=== PATIENT | female | born 1995 | race Caucasian/White ===

== ENCOUNTER → 2023-08-10 15:24 | Outpatient (BNVA) | payer MEDICAID, SELFPAY | PROVIDERS: PCP Pediatrics; Visit Provider Physician Assistant ==

== ENCOUNTER 2024-04-06 10:00 | Outpatient (REF) | payer MEDICAID, SELFPAY | END 2024-04-06 10:01 | disposition home or self-care (01) | LOC: HO.HOSX 10:00 | PROVIDERS: Visit Provider Physician Assistant | DX: Z13.89 Encounter for screening for other disorder (principal) ==

== ENCOUNTER 2024-08-10 15:35 | Emergency (ER) | payer MEDICAID, SELFPAY ==
--- NOTE | ~2024-08-10 | XR_ITS ---
EXAMINATION: XR FOOT, RIGHT CLINICAL INFORMATION: Great toe pain, question fracture COMPARISON: None available. TECHNIQUE: AP, lateral, and oblique views of the right foot. FINDINGS: The bones and soft tissues are normal. No fracture. Alignment is anatomic. Joint spaces are maintained. XR/XR foot RT min 3V IMPRESSION: No acute fracture or subluxation of the right foot. Electronically signed by: Be Arrington MD 08/10/2024 06:56 PM EDT
[2024-08-10 15:47] VITALS: BP 110/67; PULSE 89; RESP 20; TEMP 36.7; O2SAT 97; BMI 33.3
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
[2024-08-10] MEDS: Acetaminophen 325 MG TABLET 975 MG PO (17:53)
== END 2024-08-10 19:21 | disposition home or self-care (01) ==
PROVIDERS: Emergency Provider Internal Medicine
DX: S91.201A Unspecified open wound of right great toe with damage to nail, initial encounter (principal); M79.671 Pain in right foot; Y29.XXXA Contact with blunt object, undetermined intent, initial encounter; Y93.89 Activity, other specified; Y92.89 Other specified places as the place of occurrence of the external cause; Y99.8 Other external cause status
CPT/HCPCS: 73630; 99283; 99284

== ENCOUNTER 2025-03-15 14:38 | Outpatient (REF) | payer MEDICAID, SELFPAY ==
--- OUTSIDE RECORDS SUMMARY | 2025-03-15 15:16 | XMS_ITS | Clinical Summary ---
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 Phone Unavailable Primary Care Provider Unavailabl e Allergies No known active allergies Encounters Date Type Department Care Team Description 01/12/2025 Population Health Risk Score [facility] (C[facility]) Department [address] [phone] Provider, Population Health Generic from Last 3 Months Social History Tobacco Use Types Packs/Day Years Used Date Smoking Tobacco: Never Assessed Comments Unknown Sex and Gender Information Value Date Recorded Sex Assigned at Female 08/31/2022 10:40 AM EDT Legal Sex Female 10:40 AM EDT Gender Identity Female 08/31/2022 10:40 AM EDT Sexual Orientation Straight 08/31/2022 10 :40 AM EDT Last Filed Vital Signs Vital Sign Reading Time Taken Comments Blood Pressure 137/93 11/23/2023 5:21 PM EST Pulse 82 11/23/2023 5:21 PM EST Temperature 36.8 ??C (98.3 ??F) 11/23/2023 5:21 PM ES T Respiratory Rate 20 11/23/2023 5:21 PM EST Oxygen Saturation 98% 11/23/2023 5:21 PM EST Inhaled Oxygen Concentration - - Weight 92.4 kg (203 lb 9.6 oz) 11/23/2023 5:21 P M EST Height 154.9 cm (5' 1 ) 06/22/2022 12:08 AM EDT Body Mass Index 38.47 06/22/2022 12:08 AM EDT Plan of Treatment Health Maintenance Due Date Last Done Comments Depression Screening 1995 HIV Screening 1995 SDOH Screening 1995 Alcohol/Substance Use Screening 2007 Tobacco Screening 2007 Family Planning (PISQ) 2010 Hepatitis C Screening 2013 Pneumococcal Vaccine: Pediatrics (0 to 5 Years) and At-Risk Patients (6 to 49) Years) (1 of 2 - PCV) 2014 Pap Smear 2016 DTaP/Tdap/Td Vaccines (2 - T d or Tdap) 06/13/2023 06/13/2013 COVID-19 Vaccine (1 - 2023-2 5 season) 2024 Zoster Vaccines (1 of 2) 2045 RSV Patients and Patients Aged 60 years or older (1 - 1-dose 75+ series) 2070 Hepatitis B Vaccines Completed 07/02/1996, 1995, 1995 HPV Vaccines Completed 08/09/2008, 03/30/2008, 01/27/2008 Influenza Vaccine Completed 08/16/2024, 09/08/2013, 08/02/2013 HIB Vaccines Aged Out No longer eligi ble based on patient's age to complete this topic Hepatitis A Vaccines Aged Out No long er eligible based on patient's age to complete this topic IPV Vaccines Aged Out No longer eligi ble based on patient's age to complete this topic Meningococcal B Vaccine Aged Out No l onger eligible based on patient's age to complete this topic Meningococcal Vaccine Aged Out No sharee spencer eligible based on patient's age to complete this topic RSV under 20 months Aged Out No longe r eligible based on patient's age to complete this topic Rotavirus Vaccines Aged Out No longer eligible based on patient's age to complete this topic Insurance [facility] C[facility]
--- OUTSIDE RECORDS SUMMARY | 2025-03-15 15:16 | XMS_ITS | Encounter Summary ---
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 Role Phone Unavailable Primary Care Provider Unavailabl e Reason for Visit * Reason Comments Med Refill Encounter Details Date Type Department Care Team (Late st Contact Info) Description 12/29/2023 Refill [facility] [address] [place] [address] Marcela Ruiz FNP [address] [place] [address] Social History Tobacco Use Types Packs/Day Years Used Date Smoking Tobacco: Never Assessed Comments Unknown Sex and Gender Information Value Date Recorded Sex Assigned at Female 08/31/2022 10:40 AM EDT Legal Sex Female 10:40 AM EDT Gender Identity Female 08/31/2022 10:40 AM EDT Sexual Orientation Straight 08/31/2022 10 :40 AM EDT documented as of this encounter Plan of Treatment Not on file documented as of this encounter Visit Diagnoses Not on filedocumented in this encounter
== END 2025-03-15 14:39 | disposition home or self-care (01) ==
LOC: CF 14:38
DX: Z13.89 Encounter for screening for other disorder (principal)

== ENCOUNTER 2025-04-12 08:33 | Outpatient (REF) | payer MEDICAID, SELFPAY ==
--- NOTE | ~2025-04-12 | XR_ITS ---
EXAMINATION: XR KNEE, LEFT CLINICAL INFORMATION: M25.569 - Pain in unspecified knee COMPARISON: March 15, 2025. TECHNIQUE: AP view standing position both knees. Lateral and sunrise projection of the left knee. FINDINGS: Sclerotic marginated tunneling extending from the lateral femoral condyle to the mid tibial plateau and medial proximal metaphysis of the tibia left knee and a metallic plate along the cortical margin of the superior lateral femoral condyle left knee. Joint space narrowing involving mostly the medial compartments of both knees with associated sclerosis of the articular surface medial tibial plateau. No acute cortical disruption or gross malalignment. No suprapatellar bursa joint effusion, left knee. No lytic or blastic lesions. XR/XR knee LT 3V IMPRESSION: Medial compartment osteoarthrosis, both knees. No acute fracture or dislocation. Status post ACL repair, left knee. Electronically signed by: Neel Waters MD 04/12/2025 11:38 AM EDT
== END 2025-04-12 08:34 | disposition home or self-care (01) ==
LOC: HO.HOSX 08:33
PROVIDERS: Visit Provider Physician Assistant
DX: M25.562 Pain in left knee (principal); Z98.890 Other specified postprocedural states
CPT/HCPCS: 73562; 99212

== ENCOUNTER 2025-04-12 10:34 | Outpatient (AMB) | payer MEDICAID, SELFPAY ==
--- NOTE | 2025-04-12 10:51 | MHC.OFFVIS ---
Vital Signs 04/12/25 10:53 Height 5 ft 1 in Weight 176 lb BMI 33.3 Intake Visit Reasons: OV-LT knee poss tibial interference 12/15/23 NE Intake Note: Estela is a 29 year old female who presents today for a follow up of her left knee and debridement tibial tunnel on 12/14/23 NE. Patient reports she is feeling better. She states that she an injury back in January when she was jump in trampoline park. Allergies No Known Allergies Allergy (Verified 04/12/25 10:53) HPI HPI OV-LT knee poss tibial interference 12/15/23 NE: Details: Ms. Galicia is a 29-year-old female who presents to the office today for left knee pain. Patient does have a history of a left knee ACL reconstruction with allograft and medial meniscal repair. She reports that in January of this year she was at a trampoline park and while jumping her left knee gave out. She has had increased pain ever since. She reports that the majority of her pain is located on the medial aspect of the knee and she does have episodes of giving way. [facility] Medical History (Updated 01/09/25 @ 14:32 by Rosa Galeas CNA) Pre-eclampsia delivery delivered Depressed affect Knee dislocation Surgical History (Updated 01/09/25 @ 14:32 by Rosa Galeas CNA) History of knee surgery Social History Household Members: None Housing: Apartment Do you presently have visiting nurse or other home services: No Patient Tobacco Use Status: Former Tobacco user Tobacco use type: Cigarette Cigarettes Per Day: 3 e-Cigarette/Vaping Use: Never Used Second Hand Smoke Exposure: Yes Substance Use Type: Marijuana service: No Current occupational status: employed 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 No ecchymosis, erythema or joint effusion. Range of motion 0-110. Significant tenderness to palpation of the medial joint line with positive Tatiana's. Some laxity with anterior drawer. NVI. Assessment & Plan Assessment & Plan (1) S/P left knee arthroscopy: Onset Date: ~12/14/23 Comment: Dr. Franklin Ang Code(s): Z98.890 - Other specified postprocedural states Category: Surgical Plan Ms. Galicia is a 29-year-old female who presents to the office today for left knee pain. Patient does have a history of a left knee ACL reconstruction with allograft and medial meniscal repair. She reports that in January of this year she was [place] [employer] [place] and while jumping her left knee gave out. She has had increased pain ever since. She reports that the majority of her pain is located on the medial aspect of the knee and she does have episodes of giving way. While the office today, we discussed the role of MRI imaging to further evaluate the integrity of the left knee and surrounding structures. As the patient is status post ACL reconstruction and medial meniscal repair we will further evaluate these for possibility of rerupture of ACL and meniscal tearing. An MRI was ordered while in the office today. She will follow up after the MRIs obtained, sooner if needed. X-rays of the left knee which were obtained while in the office today and were reviewed by me, Bambi Noonan PA-C, revealed evidence of prior left knee ACL reconstruction. No acute fracture or dislocation. Orders: Orders XR knee LT 3V Today M25.569 - Pain in unspecified knee MR knee LT wo con Today M23.92 - Unspecified internal derangement of left knee, Z98.890 - Other specified postprocedural states Coding Level of Care Code Est Pt Level 4 (61761) Diagnoses S/P left knee arthroscopy Z98.890
[2025-04-12 10:53] VITALS: BMI 33.3
--- OUTSIDE RECORDS SUMMARY | 2025-04-12 12:22 | XMS_ITS | Encounter Summary ---
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
== END 2025-04-12 11:26 | disposition home or self-care (01) ==
LOC: HO.HOS 10:35
PROVIDERS: Visit Provider Physician Assistant
DX: Z47.89 Encounter for other orthopedic aftercare (principal); M25.562 Pain in left knee
CPT/HCPCS: 99214

== ENCOUNTER → 2025-04-12 10:38 | Outpatient (BNV) | payer MEDICAID, SELFPAY | PROVIDERS: Visit Provider Radiology Diagnostic Radiology | DX: M17.0 Bilateral primary osteoarthritis of knee (principal) | CPT/HCPCS: 73562 ==

== ENCOUNTER 2025-05-05 21:46 | Emergency (ER) | payer MEDICAID, SELFPAY ==
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
[2025-05-05 21:53] VITALS: PULSE 118; RESP 20; TEMP 37.4; O2SAT 99; BMI 33.0
[2025-05-05 22:16] LABS: MANUAL DIFF FLAG NO
[2025-05-05 22:18] LABS: Hematocrit 40.3 % (37.0-47.0); Hemoglobin 13.6 g/dl (12.0-16.0); Imm Gran Abs Auto 0.04 X10*3/uL (0.00-0.03); Imm Gran Pct Auto 0.4 % (0.0-0.4); Lymphocytes Absolute Auto 1.9 X10*3/uL (1.2-4.9); Mean Corpuscular HGB Conc 33.7 g/dl (31.0-35.0); Mean Corpuscular Hemoglobin 28.1 pg (27.0-33.0); Mean Corpuscular Volume 83.3 fL (80.0-98.0); NRBC Abs Auto 0.000 X10*3/uL (0.0-0.012); NRBC Pct Auto 0.0 /100WBC (0.0-0.2); Platelet Count 213 X10*3/uL (160-400); Red Blood Count 4.84 X10*6/uL (4.20-5.50); White Blood Count 11.4 X10*3/uL (4.8-10.8)
[2025-05-05 22:31] LABS: Alanine Aminotransferase 20 U/L (0-31); Albumin Level 4.5 g/dL (3.5-5.0); Alkaline Phosphatase 57 U/L (39-117); Anion Gap 12 (12-20); Aspartate Amino Transferase 25 U/L (5-31); Blood Urea Nitrogen 12 mg/dL (9-16); Calcium 9.4 mg/dL (8.4-10.2); Carbon Dioxide 24 mmol/L (22-29); Chloride 109 mmol/L (96-108); Creatinine Clr Calc Pharmacy 119.9; Estimated Glomerular Filt Rate > 60; Potassium 3.8 mmol/L (3.3-5.1); Sodium 141 mmol/L (135-145); Total Protein 7.3 g/dL (6.5-8.0)
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
[2025-05-05] MEDS: Morphine Sulfate Immed Release 15 MG TABLET PO (23:25)
[2025-05-05] MEDS: Diphth,Pertus(ACell),Tet Adult 0.5 ML SYRINGE IM (23:25)
[2025-05-06 02:20] VITALS: PULSE 86; RESP 18; TEMP 37.1; O2SAT 98
[2025-05-06] MEDS: Silver Sulfadiazine 1 % Cream 20 GM TUBE 1 APPL TOPICAL ×2 (02:20)
[2025-05-06 02:53] VITALS: BP 0/0; PULSE 86; RESP 18; TEMP 37.1; O2SAT 98
== END 2025-05-06 03:32 | disposition home or self-care (01) ==
PROVIDERS: Emergency Provider Internal Medicine
DX: S40.812A Abrasion of left upper arm, initial encounter (principal); S40.811A Abrasion of right upper arm, initial encounter; V49.9XXA Car occupant (driver) (passenger) injured in unspecified traffic accident, initial encounter; Y93.9 Activity, unspecified; Y92.9 Unspecified place or not applicable; Y99.9 Unspecified external cause status
CPT/HCPCS: 36415; 70450; 73130; 80053; 85025; 90471; 90715; 99284

== ENCOUNTER → 2025-05-05 23:00 | Outpatient (BNV) | payer MEDICAID, SELFPAY | PROVIDERS: Emergency Provider Internal Medicine; Visit Provider Radiology Diagnostic Radiology | DX: M79.642 Pain in left hand (principal) | CPT/HCPCS: 73130 ==

== ENCOUNTER → 2025-05-06 | Outpatient (BNV) | payer MEDICAID, SELFPAY | PROVIDERS: Emergency Provider Internal Medicine; Visit Provider Radiology Diagnostic Radiology | DX: S00.85XA Superficial foreign body of other part of head, initial encounter (principal) | CPT/HCPCS: 70450 ==